=== PATIENT | male | born 1970 | race Caucasian/White ===

== ENCOUNTER 2018-12-28 22:42 | Inpatient (IN) | payer OTHER ==
[~2018-12-28] VITALS: Ht 172.7 cm; Wt 84.4 kg
[2018-12-28 22:44] VITALS: BP 148/86
[2018-12-28] MEDS ORDERED: LANTUS100 UNIT/M (22:51)
[2018-12-28] MEDS ORDERED: HUMALOG100 UNIT/1 (22:52)
[2018-12-28 23:00] LABS: ABSOLUTE BASOPHILS 0.1 thou/uL (0.0-0.2); ABSOLUTE EOSINOPHILS 0.3 thou/uL (0.0-0.7); ABSOLUTE LYMPHOCYTES 2.4 thou/uL (0.8-5.3); ABSOLUTE MONOCYTES 0.6 thou/uL (0.0-1.2); ABSOLUTE NEUTROPHILS 8.3 thou/uL (1.6-8.1); BASOPHILS 0.8 %; EOSINOPHILS 2.7 %; HEMATOCRIT 44.6 % (42.0-52.0); HEMOGLOBIN 14.8 gm/dL (14.0-18.0); LYMPHOCYTES 20.7 %; MCH 30.9 pg (26.0-34.0); MCHC 33.2 g/dL (28.0-37.0); MCV 93.3 fL (80.0-100.0); MONOCYTES 4.9 %; NUCLEATED RBCS 0 /100WBC; PLATELET COUNT* 402 thou/uL (150-400); POLYS 70.9 %; RBC 4.78 mil/uL (4.50-6.00); RDW-CV 12.4 % (10.5-14.5); WBC 11.8 thou/uL (4.0-11.0)
[2018-12-28 23:18] LABS: ANION GAP 13 mmol/L (7-16); BUN 13 mg/dL (7-18); CALCIUM 9.5 mg/dL (8.5-10.1); CHLORIDE 101 mmol/L (98-107); CO2 23 mmol/L (21-32); CREATININE 1.4 mg/dL (0.6-1.3); GLUCOSE 441 mg/dL (70-99); POTASSIUM 3.4 mmol/L (3.5-5.1); SODIUM 137 mmol/L (136-145)
[2018-12-28 23:30] LABS: BE -3.4 mmol/L (-2 to +3); PCO2 38.7 mmHg (35.0-45.0); PO2 60.2 mmHg (75.0-100.0); pH 7.363 (7.340-7.450)
[2018-12-28 23:32] LABS: ALBUMIN 3.9 g/dL (3.4-5.0); ALKALINE PHOSPHATASE 162 U/L (46-116); SGOT 19 U/L (15-37); SGPT 30 U/L (30-65); TOTAL BILIRUBIN 0.3 mg/dL (<0.1-1.0); TOTAL PROTEIN 7.6 g/dL (6.4-8.2); TROPONIN-I LEVEL <0.06 ng/mL (<0.06)
[2018-12-28 23:45] LABS: INFLUENZA A ANTIGEN None Detected (None Detect); INFLUENZA B ANTIGEN None Detected (None Detect)
[2018-12-28 23:53] LABS: APTT 24.7 Seconds (25.0-31.3); PROTIME 9.9 Seconds (9.20-11.50)
[2018-12-29] VITALS (7 sets, daily range): BP systolic 109–148; BP diastolic 62–74
[2018-12-29 02:34] LABS: PHOSPHORUS* 4.1 mg/dL (2.5-4.9)
[2018-12-29 03:18] LABS: URINE BILIRUBIN NEGATIVE (Negative); URINE BLOOD NEGATIVE (Negative); URINE CLARITY CLEAR; URINE COLOR YELLOW; URINE GLUCOSE-RANDOM 3+ (Negative); URINE KETONES NEGATIVE (Negative); URINE LEUKOCYTES-REFLEX NEGATIVE (Negative); URINE NITRITE-REFLEX NEGATIVE (Negative); URINE PROTEIN NEGATIVE (Negative); URINE SPECIFIC GRAVITY 1.025 (1.005-1.030); URINE UROBILINOGEN 0.2 E.U./dl (0.2-1.0)
[2018-12-29 03:24] LABS: AMP/METHAMP Negative (Negative); BARBITURATES Negative (Negative); BENZODIAZEPINES Negative (Negative); COCAINE Negative (Negative); METHADONE Negative (Negative); OPIATES Negative (Negative); PCP Negative (Negative); THC POSITIVE (Negative)
[2018-12-29] MEDS ORDERED: AUGMENTIN 875-1 EACH PO (12:03)
--- NOTE | 2018-12-29 15:56 | EKG ---
[place] [address] ELECTROCARDIOGRAM REPORT Name: BANDAR SAL Room: [address] M.R.#: [id number] Admission: 12/29/18 Attend Phys: Radha Monroy MD Discharge: 12/29/18 Date of : 74 Report #: [id number] THIS REPORT FOR: //name// [facility] ED Test Date: 2018-12-28 Test Time: 23:44:16 Pat Name: BANDAR SAL Department: Room: 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
== END 2018-12-29 13:50 | disposition home or self-care (01) | DRG 871 ==
LOC: M.ERS 22:42 → M.TBA-ER 12-29 00:15 → M.2W 12-29 00:24
PROVIDERS: Nurse Practitioner Family; ADMIT Internal Medicine
DX: A41.9 Sepsis, unspecified organism (principal); J15.9 Unspecified bacterial pneumonia; J96.00 Acute respiratory failure, unspecified whether with hypoxia or hypercapnia; E10.65 Type 1 diabetes mellitus with hyperglycemia; F17.210 Nicotine dependence, cigarettes, uncomplicated; Z79.4 Long term (current) use of insulin; Z82.49 Family history of ischemic heart disease and other diseases of the circulatory system